=== PATIENT | female | born 1985 | race Caucasian/White ===

== ENCOUNTER 2020-08-05 11:02 | Emergency (ER) | payer SELFPAY ==
[~2020-08-05] VITALS: Ht 154.9 cm; Wt 45.4 kg
--- NOTE | 2020-08-05 11:08 | NUR ---
PT REC'D TO ER VIA [facility] PT C/O DIZZNESS FOR 2 HOURS PT HASN'T EATTEN THIS MORNING AWAITING EVALUATION BY ER PROVIDER.
--- NOTE | 2020-08-05 11:15 | NUR ---
UA SENT TO LAB
--- NOTE | 2020-08-05 13:23 | NUR ---
pt had lunch resting quietly
[2020-08-05 13:42] VITALS: BP 120/71
--- NOTE | 2020-08-05 13:43 | NUR ---
Patient given written and verbal discharge instructions. Patient verbalizes understanding of instructions. Patient is ambulatory with steady gait. Refuses offer of [facility] placement. Patient given list of available shelters in surrounding area.
== END 2020-08-05 13:43 | disposition home or self-care (01) ==
LOC: ER 11:28
DX: R42 Dizziness and giddiness (principal); Z88.0 Allergy status to penicillin
CPT/HCPCS: 82962-TC